=== PATIENT | female | born 1960 | race Caucasian/White ===

== ENCOUNTER 2016-12-02 14:21 | Emergency (ER) | payer OTHER ==
[2016-12-02 15:46] VITALS: BP 149/90
--- NOTE | 2016-12-02 17:05 | UC ---
cricket Fried Timothy, scribed for Floyd Navarrete MD on 12/02/16 at 1608 . Complaint Female HPI - HPI Summary HPI Summary: Maryam Marinelli is a 55 yo female presenting to [facility] with constant 7/10 burning dysuria and right flank pain radiating to her abdomen since 11/29/16. Pt notes she took phenazopyridine this afternoon with no relief. She denies any fever, chills, nausea, or trauma, as well as hematuria or abnormally colored urine. She notes occasional cough, but denies CP or SOB. She states she had similar Sx 3 months ago, when she had her last bladder infection, however these Sx are more intense. She is not aware of any Hx of kidney stones. Her MHx includes angina, palpitations, migraine, asthma, PNA, hysterectomy, bladder infection, bladder stretch x2, arthritis. - History Of Current Complaint Chief Complaint: UCGU Stated Complaint: URINARY ISSUE Time Seen by Provider: 12/02/16 16:12 Hx Obtained From: Patient Onset/Duration: Sudden Onset, Lasting Days, Still Present Timing: Constant Severity Initially: Moderate Severity Currently: Moderate Pain Intensity: 7 Pain Scale Used: 0-10 Numeric Character: Burning Aggravating Factor(s): Urination Associated Signs And Symptoms: Negative: Nausea - Allergies/Home Medications Allergies/Adverse Reactions: Allergies Allergy/AdvReac Type Severity Reaction Status Date / Time Fluoxetine [From Prozac] Allergy Unknown Verified 12/02/16 15:46 Reaction Details Penicillins [PCN] Allergy YEAST Verified 12/02/16 15:46 INFECTION Prednisone Allergy Difficulty Verified 12/02/16 15:46 Breathing Home Medications: Home Medications Albuterol 2.5MG/3ML (0.083%)* [Ventolin 2.5 MG/3 ML NEB.FERNANDA*] 12/02/16 [History ] Lisinopril TAB* [Prinivil TAB*] 10 mg PO DAILY 12/02/16 [History Confirmed 12/02] Phenazopyridine HCl [Azo Urinary Pain Relief] 95 mg PO PRN 12/02/16 [History] PMH/Surg Hx/FS Hx/Imm Hx Cardiovascular History: Other - palpitations Other Cardiovascular History: angina Respiratory History: Asthma, Pneumonia Other GI/ History: chronic bladder infections Other History Of: Negative For: Anticoagulant Therapy - Surgical History Surgical History: Yes Surgery Procedure, Year, and Place: HYSTERECTOMY. RIGHT TOTAL KNEE REPLACEMENT- 2011. BLADDER STRETCHED X 2. APPENDECTOMY A CHILD - Family History Known Family History: Positive: Hypertension Negative: Diabetes - Social History Alcohol Use: None Substance Use Type: None Smoking Status (MU): Never Smoked Tobacco Review of Systems Constitutional: Negative Skin: Negative Eyes: Negative ENT: Negative Respiratory: Cough Cardiovascular: Negative Gastrointestinal: Negative Genitourinary: Dysuria, Other - right flank pain radiating to abd Motor: Negative Neurovascular: Negative Musculoskeletal: Negative Neurological: Negative Psychological: Negative All Other Systems Reviewed And Are Negative: Yes Physical Exam Triage Information Reviewed: Yes Vital Signs: Initial Vital Signs Temp 98.7 F 12/02/16 15:39 Pulse 102 12/02/16 15:39 Resp 16 12/02/16 15:39 BP 149/90 12/02/16 15:39 Pulse Ox 94 12/02/16 15:39 Vital Signs Reviewed: Yes - Additional Comments The patient is well-nourished in no acute distress and in no acute pain. The skin is warm and dry and skin color reflects adequate perfusion. Good skin turgor. HEENT: The head is normocephalic and atraumatic. The pupils are equal and reactive. The conjunctivae are clear and without drainage. Nares are patent and without drainage. Mouth reveals moist mucous membranes and the throat is without erythema and exudate. The external ears are intact. The ear canals are patent and without drainage. The tympanic membranes are intact. Neck is supple with full range of motion and non-tender. There are no carotid bruits. There is no neck vein distension. Respiratory: Chest is non-tender. Lungs are clear to auscultation and breath sounds are symmetrical and equal. Cardiovascular: Heart is regular rate and rhythm. There is no murmur or rub auscultated. There is no peripheral edema and pulses are symmetrical and equal. Abdomen: The abdomen is soft and non-tender. There are normal bowel sounds heard in all four quadrants and there is no organomegaly palpated. Right CVA tenderness. Musculoskeletal: There is no back pain noted. Extremities are non-tender with full range of motion. There is good capillary refill. There is no peripheral edema or calf tenderness elicited. Neurological: Patient is alert and oriented to person, place and time. The patient has symmetrical motor strength in all four extremities. Cranial nerves are grossly intact. Deep tendon reflexes are symmetrical and equal in all four extremities. Psychiatric: The patient has an appropriate affect and does not exhibit any anxiety or depression. Re-Evaluation - Re-Evaluation First Eval Re-Evaluation Time: 16:38 Change: Unchanged Complaint Female Dx - Course Course Of Treatment: Maryam Marinelli is a 55 yo female presenting to [facility] with 7/10 constant, burning dysuria and right flank pain since 11/29/16. Pt medication list is reviewed this visit. After clinical examination she will be discharged home with pyelonephritis with approptriate instructions. - Differential Dx/Diagnosis Differential Diagnosis/HQI/PQRI: Urinary Tract Infection, Other - renal calculi Provider Diagnoses: pyelonephritis Discharge - Discharge Plan Condition: Stable Disposition: HOME Prescriptions: Ciprofloxacin TAB* [Cipro 500 MG TAB*] 500 mg PO BID #20 tab Patient Education Materials: Kidney Infection (ED) Referrals: Annamaria Marquez MD [Primary Care Provider] - 2 Days Additional Instructions: Please follow up with your primary care physician regarding your visit to urgent care today. Take advil for pain management as suggested. Return to urgent care or the emergency department with any new or recurring symptoms. The documentation as recorded by the cricket lane Timothy accurately reflects the service I personally performed and the decisions made by , Floyd Navarrete MD.
--- NOTE | 2016-12-05 12:11 | ED ---
Progress - Results/Orders Results/Orders: PLEASE CALL PATIENT CX (-), D/C ABX. THANKS LUIS Re-Evaluation - Re-Evaluation First Eval Re-Evaluation Time: 16:38 Change: Unchanged Course/Dx - Course Course Of Treatment: Maryam Marinelli is a 55 yo female presenting to [facility] with 7/10 constant, burning dysuria and right flank pain since 11/29/16. Pt medication list is reviewed this visit. After clinical examination she will be discharged home with pyelonephritis with approptriate instructions. - Diagnoses Provider Diagnoses: UTI (urinary tract infection)
== END 2016-12-02 16:53 | disposition home or self-care (01) ==
LOC: UCEAST 14:21
DX: N12 Tubulo-interstitial nephritis, not specified as acute or chronic (principal); I20.9 Angina pectoris, unspecified; R00.2 Palpitations; G43.909 Migraine, unspecified, not intractable, without status migrainosus; J45.909 Unspecified asthma, uncomplicated; Z86.19 Personal history of other infectious and parasitic diseases
CPT/HCPCS: 87086; 99212; G0463

== ENCOUNTER 2017-02-19 11:32 | Emergency (ER) | payer OTHER ==
[2017-02-19] MEDS ORDERED: methylPREDNISolone 125 MG* 2 ML VIAL IV ONE (12:04)
[2017-02-19] MEDS ORDERED: Albuterol/Ipratropium NEB.SOL* Albuterol 2.5 MG/Ipratropium 0.5 MG 3 ML INH ONE (12:04)
[2017-02-19 12:40] LABS: Hematocrit 44 % (35-47); Hemoglobin 14.2 g/dl (12.0-16.0); Mean Corpuscular HGB Conc 32 g/dl (31-36); Mean Corpuscular Hemoglobin 29 pg (27-31); Mean Corpuscular Volume 88 fL (80-97); Mean Platelet Volume 8 um3 (7.4-10.4); Red Blood Count 4.94 10^6/ul (4.0-5.4); Red Cell Distribution Width 13 % (10.5-15); White Blood Count 11.4 10^3/ul (3.5-10.8)
[2017-02-19 12:57] LABS: BUN/Creatinine Ratio 20.2 (8-20); C Reactive Protein 4.63 mg/L (< 5.00); Calcium 9.4 mg/dL (8.6-10.3); EGFR African American 74.4 (>60); EGFR Non-African American 57.8 (>60); Potassium 3.8 mmol/L (3.5-5.0); Total Bilirubin 0.6 mg/dL (0.2-1.0)
--- NOTE | 2017-02-19 13:20 | RAD ---
Indication: Cough. 2 views of the chest are reviewed. Dual-energy PA views were obtained. No mediastinal shift is noted. Heart is of normal size and configuration. Lung moore appear clear. IMPRESSION: No active cardiopulmonary disease is noted.
[2017-02-19 14:36] VITALS: BP 122/64
--- NOTE | 2017-02-19 18:12 | ED ---
Esperanza Fried Edward, scribed for Lam Herman MD on 02/19/17 at 1154 . HPI Chest Pain - HPI Summary HPI Summary: 56 y/o female presents to the ED c/o sudden onset CP in the left side with L arm numbness. The pain has been getting progressively worse and is rated 8/10 in severity. It is not alleviated with anything. The pain is aggravated with sitting up and movement of the L arm. Associated sx: nonproductive cough for 3 weeks. Pt has been taking non-prescribed abx. - History of Current Complaint Chief Complaint: EDChestPainROMI Time Seen by Provider: 02/19/17 11:51 Hx Obtained From: Patient Onset/Duration: Started Hours Ago - Yesterday, Still Present Current Severity: Severe Pain Intensity: 8 Pain Scale Used: 0-10 Numeric Chest Pain Location: Left Lateral Chest Pain Radiates: Yes Chest Pain Radiates To:: Arm - Numbness Aggravating Factor(s): Position - Sitting up, Movement - L arm, Alcohol Alleviating Factor(s): Nothing Associated Signs and Symptoms: Positive: Chest Pain, Nonproductive Cough - Allergy/Home Medications Allergies/Adverse Reactions: Allergies Allergy/AdvReac Type Severity Reaction Status Date / Time Fluoxetine [From Prozac] Allergy Unknown Verified 12/02/16 15:46 Reaction Details Penicillins [PCN] Allergy YEAST Verified 12/02/16 15:46 INFECTION Prednisone Allergy Difficulty Verified 12/02/16 15:46 Breathing PMH/Surg Hx/FS Hx/Imm Hx Previously Healthy: No Endocrine/Hematology History: Denies: Hx Anticoagulant Therapy, Hx Diabetes Cardiovascular History: Reports: Hx Angina Denies: Hx Congestive Heart Failure, Hx Coronary Artery Disease, Hx Hypercholesterolemia, Hx Hypertension, Hx Myocardial Infarction, Hx Valvular Heart Disease Respiratory History: Reports: Hx Asthma - On meds, Hx Pneumonia - last Spring History: Reports: Other Problems/Disorders - HISTOYR OF BLADDER STRETCHED X 2 Musculoskeletal History: Reports: Hx Arthritis - KNEES Sensory History: Reports: Hx Contacts or Glasses - READING GLASSES Denies: Hx Hearing Aid Opthamlomology History: Reports: Hx Contacts or Glasses - READING GLASSES Neurological History: Reports: Hx Headaches, Hx Migraine - DAILY- ADVIL LIQUIGELS FOR - Cancer History Hx Chemotherapy: No Hx Radiation Therapy: No - Surgical History Surgery Procedure, Year, and Place: HYSTERECTOMY. RIGHT TOTAL KNEE REPLACEMENT- 2011. BLADDER STRETCHED X 2. APPENDECTOMY A CHILD Hx Anesthesia Reactions: No Infectious Disease History: No Infectious Disease History: Denies: Traveled Outside the [place] in Last 30 Days - Family History Known Family History: Positive: Hypertension Negative: Diabetes - Social History Alcohol Use: None Hx Substance Use: No Substance Use Type: Reports: None Hx Tobacco Use: No Smoking Status (MU): Never Smoked Tobacco Review of Systems Constitutional: Negative Eyes: Negative ENT: Negative Positive: Chest Pain Positive: Cough Gastrointestinal: Negative Genitourinary: Negative Musculoskeletal: Negative Skin: Negative Neurological: Negative Psychological: Normal All Other Systems Reviewed And Are Negative: Yes Physical Exam Triage Information Reviewed: Yes Vital Signs On Initial Exam: Initial Vitals Temp Pulse Resp BP Pulse Ox 97.8 F 105 18 159/76 98 02/19/17 11:34 02/19/17 11:34 02/19/17 11:34 02/19/17 11:34 02/19/17 11:34 Vital Signs Reviewed: Yes Appearance: Positive: Well-Appearing, No Pain Distress Skin: Positive: Warm, Skin Color Reflects Adequate Perfusion, Dry Head/Face: Positive: Normal Head/Face Inspection Eyes: Positive: Normal ENT: Positive: Normal ENT inspection Neck: Positive: Supple, Nontender Respiratory/Lung Sounds: Positive: Breath Sounds Present, Other - Wheezing. Expiratory wheezes, upper respiratory sounds inspiratory Cardiovascular: Positive: RRR Abdomen Description: Positive: Nontender, Soft Bowel Sounds: Positive: Present Musculoskeletal: Positive: Normal Neurological: Positive: Normal Psychiatric: Positive: Normal, Affect/Mood Appropriate Diagnostics - Vital Signs Vital Signs Temp Pulse Resp BP Pulse Ox 02/19/17 11:34 97.8 F 105 18 159/76 98 - Laboratory Lab Results: Lab Results 02/19/17 02/19/17 02/19/17 Range/Units 12:20 12:20 12:20 WBC 11.4 H (3.5-10.8) 10^3/ul RBC 4.94 (4.0-5.4) 10^6/ul Hgb 14.2 (12.0-16.0) g/dl Hct 44 (35-47) % MCV 88 (80-97) fL MCH 29 (27-31) pg MCHC 32 (31-36) g/dl RDW 13 (10.5-15) % Plt Count 346 (150-450) 10^3/ul MPV 8 (7.4-10.4) um3 Neut % (Auto) 62.4 (38-83) % Lymph % (Auto) 26.0 (25-47) % Boyd % (Auto) 9.1 H (1-9) % Eos % (Auto) 1.9 (0-6) % Baso % (Auto) 0.6 (0-2) % Absolute Neuts (auto) 7.1 (1.5-7.7) 10^3/ul Absolute Lymphs (auto) 3.0 (1.0-4.8) 10^3/ul Absolute Monos (auto) 1.0 H (0-0.8) 10^3/ul Absolute Eos (auto) 0.2 (0-0.6) 10^3/ul Absolute Basos (auto) 0.1 (0-0.2) 10^3/ul Absolute Nucleated RBC 0.01 10^3/ul Nucleated RBC % 0.1 Sodium 138 (133-145) mmol/L Potassium 3.8 (3.5-5.0) mmol/L Chloride 103 (101-111) mmol/L Carbon Dioxide 27 (22-32) mmol/L Anion Gap 8 (2-11) mmol/L BUN 20 (6-24) mg/dL Creatinine 0.99 H (0.51-0.95) mg/dL Est GFR ( Amer) 74.4 (>60) Est GFR (Non-Af Amer) 57.8 (>60) BUN/Creatinine Ratio 20.2 H (8-20) Glucose 109 H (70-100) mg/dL Lactic Acid (0.5-2.0) mmol/L Calcium 9.4 (8.6-10.3) mg/dL Total Bilirubin 0.60 (0.2-1.0) mg/dL AST 20 (13-39) U/L ALT 25 (7-52) U/L Alkaline Phosphatase 75 (34-104) U/L Troponin I 0.00 (<0.04) ng/mL C-Reactive Protein 4.63 (< 5.00) mg/L B-Natriuretic Peptide 21 ( - 100) pg/mL Total Protein 7.0 (6.4-8.9) g/dL Albumin 4.0 (3.2-5.2) g/dL Globulin 3.0 (2-4) g/dL Albumin/Globulin Ratio 1.3 (1-3) 02/19/17 02/19/17 Range/Units 12:20 15:17 WBC (3.5-10.8) 10^3/ul RBC (4.0-5.4) 10^6/ul Hgb (12.0-16.0) g/dl Hct (35-47) % MCV (80-97) fL MCH (27-31) pg MCHC (31-36) g/dl RDW (10.5-15) % Plt Count (150-450) 10^3/ul MPV (7.4-10.4) um3 Neut % (Auto) (38-83) % Lymph % (Auto) (25-47) % Boyd % (Auto) (1-9) % Eos % (Auto) (0-6) % Baso % (Auto) (0-2) % Absolute Neuts (auto) (1.5-7.7) 10^3/ul Absolute Lymphs (auto) (1.0-4.8) 10^3/ul Absolute Monos (auto) (0-0.8) 10^3/ul Absolute Eos (auto) (0-0.6) 10^3/ul Absolute Basos (auto) (0-0.2) 10^3/ul Absolute Nucleated RBC 10^3/ul Nucleated RBC % Sodium (133-145) mmol/L Potassium (3.5-5.0) mmol/L Chloride (101-111) mmol/L Carbon Dioxide (22-32) mmol/L Anion Gap (2-11) mmol/L BUN (6-24) mg/dL Creatinine (0.51-0.95) mg/dL Est GFR ( Amer) (>60) Est GFR (Non-Af Amer) (>60) BUN/Creatinine Ratio (8-20) Glucose (70-100) mg/dL Lactic Acid 1.4 (0.5-2.0) mmol/L Calcium (8.6-10.3) mg/dL Total Bilirubin (0.2-1.0) mg/dL AST (13-39) U/L ALT (7-52) U/L Alkaline Phosphatase (34-104) U/L Troponin I 0.01 (<0.04) ng/mL C-Reactive Protein (< 5.00) mg/L B-Natriuretic Peptide ( - 100) pg/mL Total Protein (6.4-8.9) g/dL Albumin (3.2-5.2) g/dL Globulin (2-4) g/dL Albumin/Globulin Ratio (1-3) Result Diagrams: 02/19/17 12:20 02/19/17 12:20 Lab Statement: Any lab studies that have been ordered have been reviewed, and results considered in the medical decision making process. - Radiology CXR Xray Interpretation: No Acute Changes - No active cardiopulmonary disease is noted. ED physician agreeable Radiology Interpretation Completed By: Radiologist - EKG 1 EKG Interpretation: 11:38 - Borderline Sinus Tachycardia @ 98 BPM Re-Evaluation - Re-Evaluation 1 Re-Evaluation Time: 14:19 Chest Pain Course/Dx - Course Course Of Treatment: Ms. Marinelli presented with SOB. She has had URI symptoms for a couple weeks and has taken 5 doses of levaquin that she had left over. She is now C/O left chest pain worse with coughing and movement. She improved a lot with nebs and steroids here and R/U for any cardiac or PE. She wants to try it at home and I will give her antibiotics and steroids. - Diagnoses Provider Diagnoses: Bronchitis with bronchospasm Discharge - Discharge Plan Condition: Stable Disposition: HOME Prescriptions: Clarithromycin TAB* [Biaxin TAB*] 500 mg PO BID #20 tab Methylprednisolone [Medrol Dosepak 4 MG*] 4 mg PO .SEE ANAM INSTRUCTION #1 tab Patient Education Materials: Bronchospasm (ED), Acute Bronchitis (ED) Referrals: Annamaria Marquez MD [Primary Care Provider] - 1 Week (PLEASE f/u within the week) The documentation as recorded by the Esperanza lane Edward accurately reflects the service I personally performed and the decisions made by , Lam Herman MD.
== END 2017-02-19 16:24 | disposition home or self-care (01) ==
LOC: ED 11:32
DX: J45.909 Unspecified asthma, uncomplicated (principal); Z88.0 Allergy status to penicillin
CPT/HCPCS: 36415; 71020; 80053; 83605; 83880; 84484; 85025; 86140; 87040; 93005; 94640; 96374; 99283; A9270-GY; J2930

== ENCOUNTER 2017-02-28 13:42 | Emergency (ER) | payer OTHER ==
--- NOTE | 2017-02-28 14:35 | RAD ---
HISTORY: Right ankle trauma COMPARISONS: None relevant available time dictation VIEWS: 3, Frontal, lateral, and oblique views of the right ankle FINDINGS: BONE DENSITY: Normal. BONES: There is a nondisplaced fracture of the distal fibula at the lateral malleolus. There are calcaneal enthesophytes. JOINTS: There is no arthropathy. ALIGNMENT: There is no dislocation. SOFT TISSUES: There is soft tissue swelling over the lateral malleolus. OTHER FINDINGS: None. IMPRESSION: NONDISPLACED FRACTURE OF THE LATERAL MALLEOLUS.
[2017-02-28 14:55] VITALS: BP 116/86
[2017-02-28] MEDS ORDERED: HYDROcodone/ACETAMIN 5-325 MG* 1 TAB PO ONE (15:18)
--- NOTE | 2017-02-28 15:28 | UC ---
Lower Extremity/Ankle HPI - HPI Summary HPI Summary: Patient fell coming back from the garden and chhaya - History of Current Complaint Chief Complaint: UCLowerExtremity Stated Complaint: ANKLE INJURY Time Seen by Provider: 02/28/17 13:58 - Allergies/Home Medications Allergies/Adverse Reactions: Allergies Allergy/AdvReac Type Severity Reaction Status Date / Time Fluoxetine [From Prozac] Allergy Unknown Verified 02/28/17 13:50 Reaction Details Penicillins [PCN] Allergy YEAST Verified 02/28/17 13:50 INFECTION Prednisone Allergy Difficulty Verified 02/28/17 13:50 Breathing PMH/Surg Hx/FS Hx/Imm Hx Other History Of: Negative For: Anticoagulant Therapy - Surgical History Surgical History: Yes Surgery Procedure, Year, and Place: HYSTERECTOMY. RIGHT TOTAL KNEE REPLACEMENT- 2011. BLADDER STRETCHED X 2. APPENDECTOMY A CHILD - Family History Known Family History: Positive: None, Hypertension Negative: Diabetes - Social History Alcohol Use: None Substance Use Type: None Smoking Status (MU): Never Smoked Tobacco Physical Exam Vital Signs: Initial Vital Signs Temp 99.1 F 02/28/17 14:54 Pulse 96 02/28/17 14:54 Resp 18 02/28/17 14:54 BP 116/86 02/28/17 14:54
== END 2017-02-28 15:56 | disposition home or self-care (01) ==
LOC: UCEAST 13:42
DX: S99.911A Unspecified injury of right ankle, initial encounter (principal); W01.0XXA Fall on same level from slipping, tripping and stumbling without subsequent striking against object, initial encounter; Z88.8 Allergy status to other drugs, medicaments and biological substances; Z88.0 Allergy status to penicillin; Z96.651 Presence of right artificial knee joint
CPT/HCPCS: 99212; G0463

== ENCOUNTER 2017-05-19 12:41 | Observation (INO) | payer OTHER ==
[2017-05-19] MEDS ORDERED: oxyCODONE/Acetamin 5/325 MG* TAB PO PRN ×2 (14:50)
[2017-05-19] MEDS ORDERED: Morphine INJ* 2 MG/ML 1 ML SYRINGE (TWO MG - NEW SYRINGE VERSION) IV PRN (14:51)
[2017-05-19] MEDS ORDERED: Docusate CAP* 100 MG PO PRN (14:51)
--- NOTE | 2017-05-19 15:01 | HP ---
HISTORY AND PHYSICAL: DATE OF ADMISSION: 05/19/17. HISTORY OF PRESENT ILLNESS: Maryam is a 56-year-old woman who had been following in my office for right ankle injury, this occurred approximately two and a half months ago. Initially, she only had right ankle pain, but over the last month she developed left thigh pain in the lateral aspect of the distal thigh. She has attributed this to the total knee, which has been asymptomatic up to this point. In the office today, we ranged the lower extremity, noted some groin pain and so ordered a hip x-ray. The hip x-ray shows an abnormality of the intertrochanteric area of the left proximal femur. No definitive fracture line is noted, but there is abnormal bone shape suggesting perhaps acute on chronic injury of the left intertrochanteric hip. The patient is having difficulty weightbearing, unable to comfortably ambulate with crutches, and we are having a pushback from the insurance [employer] about obtaining a CT scan of her left hip. In light of this and her increasing pain with weightbearing, we are admitting to the hospital for expedited CT scan left hip and possible operative intervention. PAST MEDICAL HISTORY: Maryam overall is a healthy 56-year-old. She is obese. She has a history of dyspnea, some hyperlipidemia and some palpitations. MEDICATIONS: Currently, 1. Atorvastatin 10 mg per day. 2. Pantoprazole 40 mg per day. 3. Flovent 110 micrograms 2 puffs twice a day. 4. Montelukast 10 mg per day. 5. Levocetirizine 5 mg per day. 6. Elmiron. 7. Albuterol sulfate 4 times daily as needed. 8. Lisinopril 10 mg per day. ALLERGIES: She has allergies to PREDNISONE and PROZAC. PHYSICAL EXAMINATION GENERAL: She is a heavyset, at 5 feet 3 inches, 200 pounds. She walks with significant antalgia on the left side. NECK: Supple. CHEST: Exam is clear to auscultation. I do not hear any wheezing. CARDIAC: Exam shows a regular rate. No extra sounds noted. ABDOMEN: Soft, doughy, large, nontender. EXTREMITIES: Exam shows her to have warm sensate left foot. She has pain with full hip flexion and external rotation mostly on the lateral thigh area. The knee itself, where she has had a previous total knee, is asymptomatic. She has a well- healed anterior scar. No medial or lateral instability. No joint line tenderness. RADIOGRAPHS: She has radiographs of the left knee which show well-positioned total knee arthroplasty. No evidence of malposition or loosening. Left hip views though show abnormality in the area of the intertrochanteric region without definitive fracture noted, but there appears to be extra callus there, as if this is an acute on chronic injury of the left intertrochanteric area. ASSESSMENT AND PLAN: The patient with left intertrochanteric hip fracture, admitted for evaluation and possible surgical intervention. [id number]/[facility] #: [id number] MTDD
[2017-05-19 15:28] LABS: Hematocrit 45 % (35-47); Mean Corpuscular HGB Conc 33 g/dl (31-36); Mean Corpuscular Hemoglobin 30 pg (27-31); Mean Corpuscular Volume 91 fL (80-97); Mean Platelet Volume 8 um3 (7.4-10.4); Red Cell Distribution Width 15 % (10.5-15); White Blood Count 8.7 10^3/ul (3.5-10.8)
[2017-05-19] MEDS ORDERED: Ondansetron TAB* 4 MG PO PRN (15:28)
[2017-05-19 15:43] LABS: Albumin 4.4 g/dL (3.2-5.2); BUN/Creatinine Ratio 18.8 (8-20); Calcium 9.7 mg/dL (8.6-10.3); EGFR African American 95.1 (>60); EGFR Non-African American 73.9 (>60); Globulin 3.1 g/dL (2-4); Total Bilirubin 0.4 mg/dL (0.2-1.0); Total Protein 7.5 g/dL (6.4-8.9)
[2017-05-19] MEDS ORDERED: METHYLPREDNISOLONE 4 MG PO SCH (15:45)
[2017-05-19] MEDS ORDERED: diPHENhydraMINE PO* 25 MG PO PRN (16:06)
--- NOTE | 2017-05-19 16:28 | RAD ---
Indication: Lateral LEFT hip pain radiating from the knee post fall and January with injury to the LEFT knee. Prosthetic knee. Comparison: May 19, 2017 LEFT hip and knee radiographs. Technique: Noncontrast CT pelvis and LEFT femur. Multiplanar reformation with bone algorithm. Report: Negative for suspicious abnormality of the visualized pelvic viscera. Small densely sclerotic lesions at the sacrum, unchanged compared with a CT from April 02, 2011, consistent with bone islands. Larger densely sclerotic lesion intertrochanteric to subtrochanteric region of the LEFT femur inseparable from the cortex measuring up to 2.1 x 1.0 x 5.1 cm is consistent with a bone island given stability compared with a CT from April 02, 2011. Negative for pelvic, hip, or femur fracture or CT stigmata of stress reaction. Minimal osteophytic lipping at the hips. Mild superior joint space narrowing at the RIGHT hip. Partially visualized LEFT knee prosthesis with associated artifact. No periprosthetic lucency to suggest prosthesis loosening. No joint effusion evident. Negative for muscle atrophy or other muscle or tendon abnormality within limits of CT from the LEFT hip through the knee. Lumbar sacral spine degenerative spondylosis and facet joint osteoarthritis with moderately severe facet joint osteoarthritis at L5-S1. Negative for acquired spinal stenosis. No soft tissue plane hematoma evident within the [id number]. IMPRESSION: 1. No evidence for fracture or CT stigmata of stress reaction within the [id number]. 2. Noted bone islands including at the proximal LEFT femur are stable compared with the CT from 2010 without concern. 3. 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
--- NOTE | 2017-05-19 16:28 | RAD ---
Indication: Lateral LEFT hip pain radiating from the knee post fall and January with injury to the LEFT knee. Prosthetic knee. Comparison: May 19, 2017 LEFT hip and knee radiographs. Technique: Noncontrast CT pelvis and LEFT femur. Multiplanar reformation with bone algorithm. Report: Negative for suspicious abnormality of the visualized pelvic viscera. Small densely sclerotic lesions at the sacrum, unchanged compared with a CT from April 02, 2011, consistent with bone islands. Larger densely sclerotic lesion intertrochanteric to subtrochanteric region of the LEFT femur inseparable from the cortex measuring up to 2.1 x 1.0 x 5.1 cm is consistent with a bone island given stability compared with a CT from April 02, 2011. Negative for pelvic, hip, or femur fracture or CT stigmata of stress reaction. Minimal osteophytic lipping at the hips. Mild superior joint space narrowing at the RIGHT hip. Partially visualized LEFT knee prosthesis with associated artifact. No periprosthetic lucency to suggest prosthesis loosening. No joint effusion evident. Negative for muscle atrophy or other muscle or tendon abnormality within limits of CT from the LEFT hip through the knee. Lumbar sacral spine degenerative spondylosis and facet joint osteoarthritis with moderately severe facet joint osteoarthritis at L5-S1. Negative for acquired spinal stenosis. No soft tissue plane hematoma evident within the [id number]. IMPRESSION: 1. No evidence for fracture or CT stigmata of stress reaction within the [id number]. 2. Noted bone islands including at the proximal LEFT femur are stable compared with the CT from 2010 without concern. 3. 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
[2017-05-19] MEDS: Heparin VIAL(*) 5000 UNITS/ML VIAL (FIVE THOUSAND) SUBCUT SCH (21:33)
[2017-05-20] MEDS ORDERED: Omeprazole CAP* 20 MG PO SCH (07:30)
[2017-05-20 07:45] VITALS: BP 133/73
[2017-05-20] MEDS: Heparin VIAL(*) 5000 UNITS/ML VIAL (FIVE THOUSAND) SUBCUT SCH (08:27)
[2017-05-20] MEDS ORDERED: Cetirizine* 10 MG TAB PO SCH (09:00)
[2017-05-20] MEDS ORDERED: Lisinopril TAB* 10 MG PO SCH (09:00)
[2017-05-20] MEDS ORDERED: Atorvastatin* 10 MG TAB PO SCH (09:00)
--- NOTE | 2017-05-20 10:58 | PN ---
PROGRESS NOTE: DATE OF SERVICE: 05/20/17. HISTORY OF PRESENT ILLNESS: Maryam is feeling better this morning. She is up, out of bed, walking a little bit with slightly less pain. She has a walker with her. CT scan official reading has come through and shows some bone islands in the proximal femur, but no evidence of fracture. Pelvis also without fracture. Some stage 2 arthritic changes noted at the acetabulum. Maryam's pain may be related to exacerbation of her arthritis, possibly muscle strain. At this point, we will advance to a regular diet and I have ordered physical therapy for her for some exercises and gait training with a walker. She will be able to go home once therapy sees her and then follow up in my office. DISCHARGE DIAGNOSIS: Left hip arthritis, exacerbation from previous fall. [id number]/[facility] #: [id number] MTDD
--- NOTE | 2017-05-21 05:27 | DS ---
DISCHARGE SUMMARY: DATE OF ADMISSION: 05/19/17 DATE OF DISCHARGE: 05/20/17 ATTENDING PHYSICIAN: Dr. Amezcua * (DICTATED BY SALOMÓN DAVIDSON) CHIEF COMPLAINT: 1. Left-sided hip pain concerning for intertrochanteric fracture of left proximal femur. 2. Dyspnea. 3. Hyperlipidemia. 4. History of palpitations. DISCHARGE DIAGNOSES: 1. Osteoarthritis, left hip with associated muscle strain. 2. History of dyspnea. 3. Hyperlipidemia. 4. History of heart palpitations. PROCEDURES: None. CONSULTATIONS: None. BRIEF HISTORY: The patient is a very pleasant 56-year-old female known to Dr. Amezcua's office for a right ankle injury when she was seen on 05/19/17. In the office, she noted that she had groin pain and had x-rays that showed an abnormality of the intertrochanteric area of the left proximal femur. The patient was admitted to [facility] for further evaluation. HOSPITAL COURSE: The patient was admitted to [facility] on . She underwent a pelvic CT, which showed no evidence of hip fracture or a stress reaction over the hip area. There were some bony evidence, which was stable compared with the 2010 CT scan, and notably the patient has had osteoarthritis within the left hip joint. She was trialed with physical therapy where she was walking independently with rolling walker and was able to perform stairs without difficulty. No acute PT needs were identified. The patient was discharged to home with follow up with Dr. Amezcua as well as given references for home PT and visiting nurses. PHYSICAL EXAMINATION: General Appearance: In no acute distress, alert and oriented, pleasant, sitting in chair comfortably. Posterior tibial pulses 2+ bilaterally. Negative Homans signs bilaterally. Tenderness over the calf or knee area. Positive tenderness over the left lateral femur more proximally extending into the groin. 5/5 hip abduction and adduction. Vital Signs: Temperature 97.7, pulse 80, respirations 18, pulse oxygenation 94% on room air, and blood pressure 123/73. DISCHARGE MEDICATIONS: 1. Colace 100 mg p.o. b.i.d. p.r.n. while taking narcotics. 2. Percocet 5/325 mg p.o. one tablet every 4 to 6 hours as needed for pain. 3. Lipitor 10 mg p.o. daily. 4. Levocetirizine 5 mg p.o. daily. 5. Lisinopril 10 mg p.o. daily. 6. Pantoprazole 40 mg daily. CONDITION ON DISCHARGE: Stable. DISCHARGE INSTRUCTIONS: Ms. Marinelli is a very pleasant 56-year-old female who was admitted for possible intertrochanteric fracture of the left hip, which on the further imaging was found to not have any acute pathology. The patient was walking independently with the use of a walker and was cleared by physical therapy. She will follow up with Dr. Amezcua in approximately 5 to 7 days or sooner if the pain does not increase. We will control her pain at home with Motrin and Percocet as needed for severe pain. No other questions or concerns but will call us if the need arise. SALOMÓN DAVIDSON [id number]/[facility] #: [id number] MTDD
== END 2017-05-20 12:00 | disposition home or self-care (01) ==
LOC: MED 13:19 → OBSVTOIN 15:28 → INTOOBSV 15:28
PROVIDERS: ADMIT Orthopaedic Surgery; ATTEND Orthopaedic Surgery
DX: S72.102A Unspecified trochanteric fracture of left femur, initial encounter for closed fracture (principal); X58.XXXA Exposure to other specified factors, initial encounter; R06.00 Dyspnea, unspecified; E78.5 Hyperlipidemia, unspecified; M16.12 Unilateral primary osteoarthritis, left hip
CPT/HCPCS: 36415; 72192; 80053; 85025; 85610; 85730; 86850; 86900; 86901; 96374; 96375; A9270-GY; G0378; J1644

== ENCOUNTER 2018-02-20 10:03 | Emergency (ER) | payer OTHER ==
[2018-02-20 10:14] VITALS: BP 158/97
[2018-02-20] MEDS ORDERED: Triamcinolone Acetonide* 40 MG/ML 1 ML VIAL IM ONE (10:32)
--- NOTE | 2018-02-20 10:32 | UC ---
Throat Pain/Nasal Abdulkadir HPI - HPI Summary HPI Summary: The patient is a 57-year-old female with a long history of asthma and seasonal allergic rhinitis. She states that about a week ago she was gardening. She was apparently sensitive to something in the garden and developed the acute onset of severe nasal congestion itchy and watery eyes as well as postnasal drip and her symptoms have progressively worsened despite taking her prescription allergy medicines. She now has severe right ear pain as well as right facial pain. Also wheezing but has not taken her nebulizer R used her puffer. She denies any fever or chills. He states that she has not allergy to prednisone. On further questioning she states that she can easily tolerate 10 mg of prednisone but higher doses make her feel ill. States that she is often received IM injections of steroids from allergists and asthma doctors without any untoward reactions. She denies any dental pain. She denies any chest or abdominal pain. - History of Current Complaint Chief Complaint: UCAllergicReaction Stated Complaint: ALLERGIC REACTION Time Seen by Provider: 02/20/18 10:10 Hx Obtained From: Patient Onset/Duration: Gradual Onset Severity: Severe Pain Intensity: 9 Pain Scale Used: 0-10 Numeric Cough: Nonproductive Associated Signs & Symptoms: Positive: Wheezing, Sinus Discomfort, Nasal Discharge Related History: Seasonal Allergies - Epiglottits Risk Factors Epiglottis Risk Factors: Negative - Allergies/Home Medications Allergies/Adverse Reactions: Allergies Allergy/AdvReac Type Severity Reaction Status Date / Time fluoxetine [From Prozac] Allergy See Comment Verified 02/20/18 10:15 Penicillins Allergy See Comment Verified 02/20/18 10:15 prednisone Allergy Difficulty Verified 02/20/18 10:15 Breathing PMH/Surg Hx/FS Hx/Imm Hx Previously Healthy: Yes Cardiovascular History: Hypertension Respiratory History: Asthma Other History Of: Negative For: Anticoagulant Therapy - Surgical History Surgical History: Yes Surgery Procedure, Year, and Place: HYSTERECTOMY. RIGHT TOTAL KNEE REPLACEMENT- 2012. BLADDER STRETCHED X 2. APPENDECTOMY A CHILD - Family History Known Family History: Positive: Hypertension Negative: Diabetes - Social History Alcohol Use: None Substance Use Type: None Smoking Status (MU): Never Smoked Tobacco - Immunization History Most Recent Influenza Vaccination: never Most Recent Pneumonia Vaccination: never Review of Systems Constitutional: Negative Skin: Negative Eyes: Negative ENT: Sore Throat, Nasal Discharge, Sinus Congestion, Sinus Pain/Tenderness - Rightr MAX Respiratory: Cough Cardiovascular: Negative Gastrointestinal: Negative Genitourinary: Negative Motor: Negative Neurovascular: Negative Musculoskeletal: Negative Neurological: Headache Psychological: Negative Is Patient Immunocompromised?: No All Other Systems Reviewed And Are Negative: Yes Physical Exam Triage Information Reviewed: Yes Appearance: Well-Appearing, No Pain Distress, Well-Nourished Vital Signs: Initial Vital Signs Temp 98.3 F 02/20/18 10:08 Pulse 103 02/20/18 10:08 Resp 20 02/20/18 10:08 BP 158/97 02/20/18 10:08 Pulse Ox 96 02/20/18 10:08 Vital Signs Reviewed: Yes Eyes: Positive: Conjunctiva Clear ENT: Positive: Hearing grossly normal, Nasal congestion, Nasal drainage, TM bulging - R, Sinus tenderness, Uvula midline. Negative: TMs normal, TM dull, TM red, Tonsillar swelling, Tonsillar exudate, Trismus, Muffled voice, Hoarse voice, Dental tenderness Dental Exam: Normal Neck: Positive: Supple, Nontender, No Lymphadenopathy Respiratory: Positive: No respiratory distress, No accessory muscle use, Wheezing Cardiovascular: Positive: RRR Musculoskeletal: Positive: ROM Intact, No Edema Neurological: Positive: Alert Psychological Exam: Normal Skin Exam: Normal Diagnostics - Laboratory Diagnostic Studies Completed/Ordered: Pox 96 % on Room Air commetn: normal/not hypoxic Throat Pain/Nasal Course/Dx - Course Assessment/Plan: refuses neb treatment here - Differential Dx/Diagnosis Provider Diagnoses: seasonal allergic rhinitis. sinusitis. bronchospasm Discharge - Sign-Out/Discharge Documenting (check all that apply): Patient Departure All imaging exams completed and their final reports reviewed: No Studies - Discharge Plan Condition: Stable Disposition: HOME Prescriptions: ceFUROXime TAB(*) [Ceftin TAB(*)] 250 mg PO BID #20 tab Fluticasone NASAL SPRAY 50MCG* [Flonase NASAL SPRAY 50MCG*] 2 spray BOTH NARES BID #1 btl Patient Education Materials: Sinusitis (ED), Allergic Rhinitis (ED), Bronchospasm (ED) Referrals: Annamaria Marquez MD [Primary Care Provider] - 3 Days (if not better) Additional Instructions: use your nebulizer when you get home warm facial compresses AFRIN NASAL SPRAY (over the counter) 2 sprays each nostril 3x day for 3 days ONLY saline nasal spray 2 sprays each nostril twice daily wait five minutes then Flonase 2 sprays each nostril - Billing Disposition and Condition Condition: STABLE Disposition: Home
== END 2018-02-20 11:02 | disposition home or self-care (01) ==
LOC: UCEAST 10:03
CPT/HCPCS: 96372; 99212; G0463; J3301

== ENCOUNTER 2018-10-13 21:14 | Emergency (ER) | payer OTHER ==
[2018-10-13] MEDS ORDERED: Famotidine IV* 10 MG/ML 2 ML (20 mg) IV SLOW PU ONE (22:03)
[2018-10-13] MEDS ORDERED: diPHENhydraMINE IV* 50 MG/ML 1 ml VIAL (BENADRYL) IV ONE (22:03)
[2018-10-13] MEDS ORDERED: NS 0.9% 1000 ML** 1,000 ML IV ONE (22:03)
[2018-10-13] MEDS ORDERED: Albuterol/Ipratropium NEB.SOL* Albuterol 2.5 MG/Ipratropium 0.5 MG 3 ML INH ONE (22:35)
--- NOTE | 2018-10-13 23:00 | ED ---
Allergic Reaction/Systemic - HPI Summary HPI Summary: 57-year-old female presents with allergic reaction today. She is not sure what she was exposed to. States she has a history of allergies and asthma. She admits to shortness of breath. She denies any difficulty swallowing. She admits to a nonproductive cough. She denies abdominal pain no nausea or vomiting. She has a rash across her chest. States the rash is itchy. No chest pain. No sore throat. Denies any headache. Took some Zyrtec for her symptoms. She states that she can only take prednisone in low doses of 10 mg or less. never had this reaction before. no new soaps or products. - History of Current Complaint Chief Complaint: EDAllergicReaction Time Seen by Provider: 10/13/18 21:45 Pain Intensity: 0 - Allergies/Home Medications Allergies/Adverse Reactions: Allergies Allergy/AdvReac Type Severity Reaction Status Date / Time fluoxetine [From Prozac] Allergy See Comment Verified 02/20/18 10:15 Penicillins Allergy See Comment Verified 02/20/18 10:15 prednisone Allergy Difficulty Verified 02/20/18 10:15 Breathing Home Medications: Home Medications Albuterol Sulfate [Ventolin Hfa] 1 dose INH Q4HR PRN 10/13/18 [History Confirmed 10/13/18] Fluticasone Furoate [Arnuity Ellipta] 1 puff INH DAILY 10/13/18 [History Confirmed 10/13/18] Montelukast Sodium TAB* [Singulair TAB*] 10 mg PO DAILY 10/13/18 [History Confirmed 10/13/18] PMH/Surg Hx/FS Hx/Imm Hx Endocrine/Hematology History: Denies: Hx Anticoagulant Therapy, Hx Diabetes Cardiovascular History: Reports: Hx Angina, Hx Hypertension Denies: Hx Congestive Heart Failure, Hx Coronary Artery Disease, Hx Hypercholesterolemia, Hx Myocardial Infarction, Hx Valvular Heart Disease Respiratory History: Reports: Hx Asthma - On meds, Hx Pneumonia - last Spring GI History: Reports: Hx Gastroesophageal Reflux Disease History: Reports: Other Problems/Disorders - HISTOYR OF BLADDER STRETCHED X 2 Musculoskeletal History: Reports: Hx Arthritis - KNEES Sensory History: Reports: Hx Contacts or Glasses Denies: Hx Hearing Aid Opthamlomology History: Reports: Hx Contacts or Glasses Neurological History: Reports: Hx Headaches, Hx Migraine - DAILY- ADVIL LIQUIGELS FOR - Cancer History Hx Chemotherapy: No Hx Radiation Therapy: No - Surgical History Surgery Procedure, Year, and Place: HYSTERECTOMY. RIGHT TOTAL KNEE REPLACEMENT- 2012. BLADDER STRETCHED X 2. APPENDECTOMY A CHILD Hx Anesthesia Reactions: No - Immunization History Immunizations Up to Date: Yes Infectious Disease History: No Infectious Disease History: Denies: Hx Clostridium Difficile, Hx Hepatitis, Hx Human Immunodeficiency Virus (HIV), Hx of Known/Suspected MRSA, Hx Shingles, Hx Tuberculosis, Hx Known/ Suspected VRE, Hx Known/Suspected VRSA, History Other Infectious Disease, Traveled Outside the [place] in Last 30 Days - Family History Known Family History: Positive: None, Hypertension Negative: Diabetes - Social History Alcohol Use: None Hx Substance Use: No Substance Use Type: Reports: None Hx Tobacco Use: No Smoking Status (MU): Never Smoked Tobacco Review of Systems Negative: Fever Negative: Chest Pain Positive: Shortness Of Breath, Cough Negative: Abdominal Pain Positive: Rash All Other Systems Reviewed And Are Negative: Yes Physical Exam Triage Information Reviewed: Yes Vital Signs On Initial Exam: Initial Vitals Temp Pulse Resp BP Pulse Ox 97.9 F 89 18 172/98 99 10/13/18 21:20 10/13/18 21:20 10/13/18 21:20 10/13/18 21:20 10/13/18 21:20 Vital Signs Reviewed: Yes Appearance: Positive: Well-Appearing Skin: Positive: Warm, Dry, Other - urticaria across chest Head/Face: Positive: Normal Head/Face Inspection Eyes: Positive: Normal, EOMI, ALONZO, Conjunctiva Clear ENT: Positive: Normal ENT inspection, Pharynx normal, TMs normal Respiratory/Lung Sounds: Positive: Breath Sounds Present, Wheezes Cardiovascular: Positive: Normal, RRR Abdomen Description: Positive: Nontender, Soft Bowel Sounds: Positive: Present Musculoskeletal: Positive: Normal Neurological: Positive: Normal Psychiatric: Positive: Normal Diagnostics - Vital Signs Vital Signs Temp Pulse Resp BP Pulse Ox 10/13/18 22:57 71 20 99 10/13/18 21:20 97.9 F 89 18 172/98 99 - Laboratory Lab Statement: Any lab studies that have been ordered have been reviewed, and results considered in the medical decision making process. Re-Evaluation - Re-Evaluation First Eval Re-Evaluation Time: 23:27 Change: Improved Comment: rash improved Allergic Reaction Course/Dx - Course Course Of Treatment: 57-year-old female presents with allergic reaction today. She is not sure what she was exposed to. States she has a history of allergies and asthma. She admits to shortness of breath. She denies any difficulty swallowing. She admits to a nonproductive cough. She denies abdominal pain no nausea or vomiting. She has a rash across her chest. States the rash is itchy. No chest pain. No sore throat. Denies any headache. Took some Zyrtec for her symptoms. She states that she can only take prednisone in low doses of 10 mg or less. never had this reaction before. no new soaps or products. On exam has urticaria rash across chest. she has some wheezing noted. Gave breathing treatment Benadryl and Pepcid and symptoms resolved. did not give steriod due to previous allergic reaction to steriodsObserved for another 2 hours and symptoms did not recur. Discuss at this time we'll just have do Pepcid and Benadryl and hydroxyzine for symptoms. gave prescription for steroid 10mg which has been on before if symptoms worsen. Told that she developed worsening shortness of breath to return. Patient understands agrees with plan. - Diagnoses Differential Diagnosis/HQI/PQRI: Positive: Anaphylaxis, Local Allergic Reaction , Urticaria Provider Diagnoses: Urticaria, Asthma Discharge - Sign-Out/Discharge Documenting (check all that apply): Patient Departure Patient Received Moderate/Deep Sedation with Procedure: No - Discharge Plan Condition: Good Disposition: HOME Prescriptions: diPHENhydraMINE PO* [Benadryl PO 25 MG TAB*] 25 mg PO BEDTIME PRN #8 tab PRN Reason: Allergy Symptoms Famotidine TAB* [Pepcid 20 MG TAB*] 20 mg PO BID #8 tab hydrOXYzine HCL TAB* [Atarax 25 MG TAB*] 25 mg PO QID PRN #8 tab PRN Reason: Hives predniSONE TAB* [Deltasone 10 MG TAB*] 10 mg PO DAILY #5 tab Patient Education Materials: Urticaria (ED) Referrals: Annamaria Marquez MD [Primary Care Provider] - Additional Instructions: use nebulizer every 4 hours Take Benadryl every 6 hours at night and hydroxyzine during the day every 6 hours Take Pepcid twice a day for 4 days if symptoms worsen start steroid once a day for 5 days Return to ED if shortness of breath, chest pain, or if develop any new or worsening symptoms - Billing Disposition and Condition Condition: GOOD Disposition: Home
[2018-10-13 23:46] VITALS: BP 163/98
== END 2018-10-13 23:48 | disposition home or self-care (01) ==
LOC: ED 21:14
DX: L50.9 Urticaria, unspecified (principal); J45.909 Unspecified asthma, uncomplicated; I10 Essential (primary) hypertension; K21.9 Gastro-esophageal reflux disease without esophagitis; Z88.0 Allergy status to penicillin; Z88.8 Allergy status to other drugs, medicaments and biological substances; Z79.51 Long term (current) use of inhaled steroids
CPT/HCPCS: 96361; 96374; 96375; 99283; A9270-GY; J1200